=== PATIENT | female | born 1940 | race Caucasian/White ===

== ENCOUNTER 2020-06-02 10:57 | Outpatient (CLI) | payer MEDICARE, OTHER ==
--- NOTE | 2020-06-02 13:21 | BD ---
DEXA BONE DENSITY STUDY: Date: 06/02/2020 HISTORY: Postmenopausal. FINDINGS: Lumbar Spine: BMD (g/cm2) L1 0.939 T-Score: -0.5 L2 1.024 T-Score: +0.0 L3 0.985 T-Score: -0.9 L4 0.903 T-Score: -1.4 Total 0.959 T-Score: -0.8 Right Femoral Neck: 0.497 T-Score: -3.2 Total Femur: 0.671 T-Score: -2.2 IMPRESSION: 1. Osteoporosis of the right femoral neck. 2. Normal bone mineral density of the lumbar spine. POS: ADRI
== END 2020-06-02 10:58 | disposition home or self-care (01) ==
LOC: BICMAMMO 10:57
PROVIDERS: ATTEND Preventive Medicine Medical Toxicology
DX: Z13.820 Encounter for screening for osteoporosis (principal); M89.9 Disorder of bone, unspecified; M81.0 Age-related osteoporosis without current pathological fracture
CPT/HCPCS: 77080

== ENCOUNTER 2020-06-10 09:40 | Outpatient (CLI) | payer MEDICARE, OTHER ==
--- NOTE | 2020-06-10 14:10 | NM ---
EXAM: NM Parathyrd Planar W/Spect CT DATE: 06/10/2020 10:00 AM INDICATION: Other specified hypothyroidism COMPARISON: Prior parathyroid evaluation dated 04/25/2018 FINDIN.3 mCi of technetium 99m sestamibi IV was utilized. Planar images were obtained in the im mediate, 1 hour and 2 postinjection time.. SPECT-CT images were obtained in the delayed two-hour time tay. There is a well-circumscribed nodular focus of radiotracer accumulation that is seen within the right mid to upper pole of the thyroid gland that persists on the delayed phase images and corresponds to a nodule within the superior pole right thyroid gland on the comparison SPECT-CT. This is most robert picious for persistent uptake of a focal thyroid nodule rather than an intrathyroid parathyroid adenoma. Seen on the SPECT-CT images only is a small focus of radiotracer accumulation seen along the left lat eral aspect of the upper esophagus which may reflect artifactual activity versus a small parathyroid adenoma within this location. IMPRESSION: 1. Well-circumscribed nodular focus of radiotracer accumulation within the right mid to upper pole of the right thyroid gland is most suspicious for persistent uptake of focal thyroid nodule rather than intrathyroid gland parathyroid adenoma. 2. Small focus of increased tracer accumulation seen along the left lateral aspect of the upper esoph matthew, near the lower pole of the left thyroid gland. Findings may reflect artifactual activity versus a small parathyroid adenoma. Recommend a dedicated CT the soft tissues of the neck with and wi thout IV contrast utilizing a parathyroid adenoma protocol.
== END 2020-06-10 09:41 | disposition home or self-care (01) ==
LOC: NM 09:40
PROVIDERS: ATTEND Preventive Medicine Medical Toxicology
DX: E03.8 Other specified hypothyroidism (principal); E04.1 Nontoxic single thyroid nodule
CPT/HCPCS: 78072; A9500

== ENCOUNTER 2021-06-13 19:02 | Inpatient (IN) | payer MEDICARE, OTHER ==
[2021-06-13 20:18] LABS: #Basophils 0.1 thou/uL (0.0-0.2); #Eosinphils 0.2 thou/uL (0.0-0.7); #Lymphocytes 2.1 thou/uL (1.20-3.40); #Monocytes 0.8 thou/uL (0.11-0.59); #Neutrophils 7.4 thou/uL (1.40-6.50); %Basophils 1.1 % (0.0-1.0); %Eosinophils 1.7 % (0.0-10.0); %Lymphocytes 19.7 % (21.0-51.0); %Monocytes 7.6 % (0.0-10.0); %Neutrophils 69.9 % (42.0-75.0); Mean Corpuscular Hemoglobin 29.1 pg (27.0-31.0); Mean Corpuscular Volume 93.6 fL (78.0-98.0); Mean Platelet Volume 6.9 fL (7.4-10.4); Platelet Count 269 thou/uL (130-400); RBC Distribution Width 12.4 % (11.5-14.5); Red Blood Cell (RBC) Count 4.81 mill/uL (4.20-5.40); White Blood Cell (WBC) Count 10.6 thou/uL (4.8-10.8)
[2021-06-13] MEDS ORDERED: Morphine 4 MG/ML VIAL ONE ×2 (20:20→21:33)
[2021-06-13 20:29] LABS: INR-International Normal Ratio 1.1; PTT 30.7 sec (22.9-36.1); Prothrombin Time 13.9 sec (12.0-14.7)
[2021-06-13 20:39] LABS: Anion Gap 10 mmol/L (10-20); BUN (Urea Nitrogen) 20 mg/dL (9.8-20.1); Calc. Creatinine Clearance 0 mL/min (70-130); Carbon Dioxide 26 mmol/L (23-31); Chloride 108 mmol/L (98-107); Potassium 4.4 mmol/L (3.5-5.1); Sodium 140 mmol/L (136-145)
[2021-06-13 20:40] LABS: ALT (SGPT) 22 U/L (8-55); AST (SGOT) 23 U/L (5-34); Albumin 3.7 g/dL (3.4-4.8); Alkaline Phosphatase 67 U/L (40-110); Bilirubin, Total 0.5 mg/dL (0.2-1.2); Globulin 2.9 g/dL (2.4-3.5); Glucose 110 mg/dL (83-110); Protein, Total 6.6 g/dL (5.8-8.1)
[2021-06-13 20:42] LABS: Bacteria/HPF None Seen HPF (None Seen); Bilirubin Negative (Negative); Blood, Urine Trace (Negative); Clarity Clear (Clear); Glucose, Urine (Dipstick) Normal (Negative); Ketone, Urine Negative (Negative); Leukocyte Negative Leu/uL (Negative); Nitrite Negative (Negative); Protein, Urine (Dipstick) Negative (Neg-Trace); RBC/HPF 0-3 HPF (0-3); Specific Gravity, Urine 1.008 (1.002-1.036); Squamous Epithelial None Seen HPF (0-3); Urobilinogen Normal mg/dL (Less than 2); WBC/HPF 0-3 HPF (0-3); pH, Urine 6.5 (5.0-9.0)
[2021-06-13] MEDS ORDERED: Morphine 4 MG/ML VIAL SLOW IVP PRN ×2 (22:10→22:32)
[2021-06-13] MEDS ORDERED: Dextrose 50% Abboject 50 ML SYRINGE SLOW IVP PRN (22:10)
[2021-06-13] MEDS ORDERED: Ondansetron PF 4 MG/2 ML Vial IVP PRN (22:10)
[2021-06-13] MEDS ORDERED: hydrALAZINE 20 MG/ML VIAL SLOW IVP PRN (22:10)
[2021-06-13] MEDS ORDERED: Dextrose 5% in Water 1,000 ML IV PRN (22:10)
[2021-06-13] MEDS ORDERED: traMADol HCl 50 MG TAB PO PRN (22:14)
[2021-06-13 22:51] LABS: Magnesium 2.2 mg/dL (1.6-2.6); Phosphorus 2.4 mg/dL (2.3-4.7)
[2021-06-13] MEDS: traMADol HCl 50 MG TAB PO SCH (23:39)
[2021-06-13] MEDS: Sodium Chloride 0.9% 1,000 ML IV SCH (23:39)
[2021-06-13] MEDS: Acetaminophen 500 MG TAB PO SCH (23:40)
[2021-06-13] MEDS: Ketorolac Tromethamine 30 MG/ML VIAL IVP SCH (23:41)
[2021-06-13 23:53] VITALS: BMI 35.5
[2021-06-14 03:29] LABS: SARS-CoV-2 NAA Rapid Test Not Detected (NotDetected)
[2021-06-14] MEDS: traMADol HCl 50 MG TAB PO SCH ×4 (05:09→21:45)
[2021-06-14] MEDS: Acetaminophen 500 MG TAB PO SCH ×3 (05:09→17:05)
[2021-06-14] MEDS: Ketorolac Tromethamine 30 MG/ML VIAL IVP SCH ×3 (05:10→18:04)
[2021-06-14 05:20] LABS: #Basophils 0.1 thou/uL (0.0-0.2); #Eosinphils 0.2 thou/uL (0.0-0.7); #Monocytes 1.3 thou/uL (0.11-0.59); #Neutrophils 11.4 thou/uL (1.40-6.50); %Basophils 0.4 % (0.0-1.0); %Eosinophils 1.3 % (0.0-10.0); %Lymphocytes 13.4 % (21.0-51.0); %Monocytes 8.7 % (0.0-10.0); %Neutrophils 76.2 % (42.0-75.0); Hemoglobin 12.7 g/dL (12.0-16.0); Mean Corpuscular HGB CONC 31.7 g/dL (32.0-36.0); Mean Corpuscular Hemoglobin 29.4 pg (27.0-31.0); Mean Corpuscular Volume 92.9 fL (78.0-98.0); Platelet Count 236 thou/uL (130-400); RBC Distribution Width 12.5 % (11.5-14.5); Red Blood Cell (RBC) Count 4.33 mill/uL (4.20-5.40); White Blood Cell (WBC) Count 14.9 thou/uL (4.8-10.8)
[2021-06-14] MEDS: Sodium Chloride 0.9% 1,000 ML IV SCH (06:34)
[2021-06-14 07:00] LABS: Anion Gap 10 mmol/L (10-20); BUN (Urea Nitrogen) 19 mg/dL (9.8-20.1); Calc. Creatinine Clearance 107 mL/min (70-130); Calcium 8.1 mg/dL (7.8-10.44); Carbon Dioxide 23 mmol/L (23-31); Chloride 110 mmol/L (98-107); Glucose 106 mg/dL (83-110); Magnesium 1.9 mg/dL (1.6-2.6); Phosphorus 3.5 mg/dL (2.3-4.7); Potassium 3.6 mmol/L (3.5-5.1); Sodium 139 mmol/L (136-145)
[2021-06-14] MEDS ORDERED: Sodium Chloride 0.9% 1,000 ML IV SCH (07:42)
[2021-06-14] MEDS ORDERED: Morphine 4 MG/ML VIAL SLOW IVP PRN (07:43)
[2021-06-14] MEDS ORDERED: Potassium Phosphate 15 MMOL in Sodium Chloride 0.9% 100 ML IVPB SCH (08:30)
[2021-06-14] MEDS: Famotidine/PF 20 mg/2ml Vial SLOW IVP SCH ×2 (08:37→21:48)
[2021-06-14] MEDS: Senokot S 8.6-50 MG TAB PO SCH ×2 (08:37→21:46)
[2021-06-14] MEDS ORDERED: Magnesium 2 GM/50 ML 2 GM in Premix Bag 1 BAG IVPB SCH (09:00)
[2021-06-14] MEDS: Polyethylene Glycol 3350 17 GM Packet PO SCH (10:01)
[2021-06-14] MEDS ORDERED: Neomycin-Polymyxin 1 ML AMP ONE (12:55)
[2021-06-14] MEDS ORDERED: ceFAZolin 2 GM/DEX 5% 100 ML BAG ONE (13:48)
[2021-06-14] MEDS ORDERED: Ketorolac Tromethamine 30 MG/ML VIAL ONE (14:06)
[2021-06-14] MEDS ORDERED: Ondansetron PF 4 MG/2 ML Vial ONE (14:06)
[2021-06-14] MEDS ORDERED: Lidocaine 1% PF 5 ML VIAL ONE (14:06)
[2021-06-14] MEDS ORDERED: Phenylephrine 10 MG/ML VIAL ONE (14:06)
[2021-06-14] MEDS ORDERED: PROPOFOL 200 MG/20 ML VIAL ONE (14:06)
[2021-06-14] MEDS ORDERED: Dexamethasone 20 MG/5 ML VIAL ONE (14:06)
[2021-06-14] MEDS ORDERED: Fentanyl 100 MCG/2 ML VIAL ONE (14:38)
[2021-06-14] MEDS ORDERED: EPINEPHrine 1 MG/ML AMP ONE (15:10)
[2021-06-14] MEDS ORDERED: Bupivacaine PF 0.5% 30 ML VIAL ONE (15:10)
[2021-06-14] MEDS ORDERED: Bupivacaine 0.25% 10 ML VIAL ONE (15:10)
[2021-06-14] MEDS ORDERED: HYDROcodone/Acetaminophen 10/325 mg Tablet PO PRN ×3 (16:13→16:24)
[2021-06-14] MEDS ORDERED: Communication Order-Pharmacy FS PRN (16:15)
[2021-06-14] MEDS ORDERED: Promethazine HCl 25 MG/ML VIAL IM PRN (16:19)
[2021-06-14] MEDS ORDERED: Promethazine HCl 25 MG/ML VIAL IVPB PRN (16:19)
[2021-06-14] MEDS ORDERED: Ondansetron HCl/PF 4 MG/2 ML Vial IVP PRN (16:19)
[2021-06-14] MEDS: DULoxetine 30 MG CAP PO SCH (21:47)
[2021-06-14] MEDS: CEFAZOLIN 2 GM in Premix Bag 1 BAG IVPB SCH (21:58)
[2021-06-15] MEDS: Acetaminophen 500 MG TAB PO SCH ×5 (00:04→23:39)
[2021-06-15] MEDS: Ketorolac Tromethamine 30 MG/ML VIAL IVP SCH ×2 (00:05→06:04)
[2021-06-15] MEDS: traMADol HCl 50 MG TAB PO SCH ×4 (04:56→23:39)
[2021-06-15] MEDS: CEFAZOLIN 2 GM in Premix Bag 1 BAG IVPB SCH (06:03)
[2021-06-15] MEDS: Cyclobenzaprine 10 MG TAB PO PRN (06:03)
[2021-06-15] MEDS ORDERED: Ibuprofen 600 MG TAB PO PRN (07:33)
[2021-06-15] MEDS: Polyethylene Glycol 3350 17 GM Packet PO SCH (08:42)
[2021-06-15] MEDS: Famotidine/PF 20 mg/2ml Vial SLOW IVP SCH ×2 (08:42→21:01)
[2021-06-15] MEDS: Senokot S 8.6-50 MG TAB PO SCH ×2 (08:42→21:01)
[2021-06-15] MEDS ORDERED: Melatonin 3 MG TAB PO PRN (09:41)
[2021-06-15] MEDS: Aspirin 81 mg Enteric Coated Tablet PO SCH ×2 (10:33→21:01)
[2021-06-15 11:44] LABS: Hemoglobin 11.7 g/dL (12.0-16.0); Mean Corpuscular HGB CONC 30.9 g/dL (32.0-36.0); Mean Corpuscular Hemoglobin 29.2 pg (27.0-31.0); Mean Corpuscular Volume 94.6 fL (78.0-98.0); Mean Platelet Volume 7.4 fL (7.4-10.4); Platelet Count 234 thou/uL (130-400); RBC Distribution Width 12.5 % (11.5-14.5); White Blood Cell (WBC) Count 22.5 thou/uL (4.8-10.8)
[2021-06-15 12:06] LABS: ALT (SGPT) 16 U/L (8-55); AST (SGOT) 24 U/L (5-34); Albumin 2.9 g/dL (3.4-4.8); Alkaline Phosphatase 55 U/L (40-110); Anion Gap 12 mmol/L (10-20); BUN (Urea Nitrogen) 22 mg/dL (9.8-20.1); Bilirubin, Total 0.4 mg/dL (0.2-1.2); Calc. Creatinine Clearance 74 mL/min (70-130); Calcium 7.8 mg/dL (7.8-10.44); Carbon Dioxide 22 mmol/L (23-31); Chloride 108 mmol/L (98-107); Globulin 2.5 g/dL (2.4-3.5); Glucose 175 mg/dL (83-110); Magnesium 2.1 mg/dL (1.6-2.6); Potassium 3.7 mmol/L (3.5-5.1); Protein, Total 5.4 g/dL (5.8-8.1); Sodium 138 mmol/L (136-145)
[2021-06-15 12:07] LABS: Phosphorus 1.9 mg/dL (2.3-4.7)
[2021-06-15 12:21] LABS: Band 6 % (5-11); Lymphocytes 11 % (21-51); MDiff Complete? YES; Monocytes 6 % (0-10); Neutrophil 76 % (42-75); Platelet Morphology Comment Appears Adequate; RBC Morphology Normal; Reactive Lymphocytes 1 % (0-10)
[2021-06-15] MEDS ORDERED: Potassium Phosphate 30 MMOL in Sodium Chloride 0.9% 250 ML 250 ML IVPB SCH (13:15)
[2021-06-15] MEDS ORDERED: TETANUS AND DIPHTHERIA TOX/PF 0.5 ML DISP.SYRIN IM SCH (16:15)
[2021-06-15] MEDS: Carvedilol 6.25 MG TAB PO SCH (21:00)
[2021-06-15] MEDS: DULoxetine 30 MG CAP PO SCH (21:01)
[2021-06-16] MEDS: Cyclobenzaprine 10 MG TAB PO PRN (02:32)
[2021-06-16] MEDS: traMADol HCl 50 MG TAB PO SCH ×3 (04:37→15:18)
[2021-06-16] MEDS: Acetaminophen 500 MG TAB PO SCH ×2 (04:39→11:47)
[2021-06-16] MEDS ORDERED: Thyroid 60 MG TAB PO SCH (09:00)
[2021-06-16] MEDS: Polyethylene Glycol 3350 17 GM Packet PO SCH (10:00)
[2021-06-16] MEDS: Senokot S 8.6-50 MG TAB PO SCH (10:01)
[2021-06-16] MEDS: Carvedilol 6.25 MG TAB PO SCH (10:02)
[2021-06-16] MEDS: Aspirin 81 mg Enteric Coated Tablet PO SCH (10:02)
[2021-06-16 10:29] LABS: #Eosinphils 0.9 thou/uL (0.0-0.7); #Monocytes 1.2 thou/uL (0.11-0.59); #Neutrophils 9.9 thou/uL (1.40-6.50); %Basophils 0.2 % (0.0-1.0); %Eosinophils 5.9 % (0.0-10.0); %Lymphocytes 20.1 % (21.0-51.0); %Monocytes 7.6 % (0.0-10.0); %Neutrophils 66.1 % (42.0-75.0); Hemoglobin 11.7 g/dL (12.0-16.0); Mean Corpuscular HGB CONC 32.4 g/dL (32.0-36.0); Mean Corpuscular Hemoglobin 30.4 pg (27.0-31.0); Mean Corpuscular Volume 93.8 fL (78.0-98.0); Mean Platelet Volume 7.4 fL (7.4-10.4); Platelet Count 238 thou/uL (130-400); RBC Distribution Width 12.6 % (11.5-14.5); Red Blood Cell (RBC) Count 3.84 mill/uL (4.20-5.40)
[2021-06-16 11:11] LABS: Anion Gap 13 mmol/L (10-20); BUN (Urea Nitrogen) 27 mg/dL (9.8-20.1); Calc. Creatinine Clearance 66 mL/min (70-130); Calcium 8.2 mg/dL (7.8-10.44); Carbon Dioxide 21 mmol/L (23-31); Chloride 108 mmol/L (98-107); Glucose 139 mg/dL (83-110); Magnesium 2.3 mg/dL (1.6-2.6); Phosphorus 2.4 mg/dL (2.3-4.7); Sodium 138 mmol/L (136-145)
[2021-06-16] MEDS ORDERED: Gabapentin 300 MG CAP PO SCH (15:00)
[2021-06-16] MEDS ORDERED: Gabapentin 100 MG CAP PO SCH (15:00)
[2021-06-16 16:18] VITALS: BP 131/76; TEMP 98
== END 2021-06-16 17:55 | DRG 480 ==
LOC: ERS 19:02 → SURG A 22:10
PROVIDERS: ADMIT Surgery; ATTEND Surgery
PROC: 0PSH04Z Reposition Right Radius with Internal Fixation Device, Open Approach (ICD-10-PCS; principal; 2021-06-14)
PROC: 0QH634Z Insertion of Internal Fixation Device into Right Upper Femur, Percutaneous Approach (ICD-10-PCS; 2021-06-14)
DX: S52.591A Other fractures of lower end of right radius, initial encounter for closed fracture (principal); S72.091A Other fracture of head and neck of right femur, initial encounter for closed fracture; Z20.822 Contact with and (suspected) exposure to COVID-19; D72.829 Elevated white blood cell count, unspecified; E83.39 Other disorders of phosphorus metabolism; Z60.2 Problems related to living alone; W18.30XA Fall on same level, unspecified, initial encounter; Z86.711 Personal history of pulmonary embolism; Z79.01 Long term (current) use of anticoagulants; Z79.899 Other long term (current) drug therapy
CPT/HCPCS: 29125; 36415; 51702; 70450; 72170; 76000; 80048; 80053; 81003; 81015; 83735; 84100; 85025; 85610; 85730; 93005; 96374; 96376; C1713; C1769; C1776; G0390; J0171; J0690; J1100; J1885; J2270; J2370; J2405; J2704; J3010; J3475; J3490; J7050; S0020; S0028; U0002